=== PATIENT | female | born 1960 | race Caucasian/White ===

== ENCOUNTER 2017-08-20 13:39 | Emergency (ER) | payer BC ==
--- NOTE | 2017-08-20 14:43 | RAD ---
Clinical Indication: Headaches and dizziness for 3 weeks. Technique: Study is dated August 20, 2017. CT images of the head were obtained from the skull base to the vertex without IV contrast. There are no comparison studies available. One or more of the following individualized dose reduction techniques were utilized for this examination: 1. Automated exposure control 2. Adjustment of the mA and/or kV according to patient size 3. Use of iterative reconstruction technique Findings: The ventricles are normal in size and configuration. There is no hemorrhage, extraaxial collection, mass, or midline shift. There is no large vascular distribution acute infarct. The posterior fossa and brainstem are unremarkable. Orbits are normal. The included paranasal sinuses and mastoid air cells are clear. There is no skull fracture appreciated on bone level images. Impression: No acute intracranial findings.
--- NOTE | 2017-08-20 15:08 | PHYS DOC ---
Past History Past Medical History: Arthritis Alcohol Use: Occasionally Drug Use: None Adult General Chief Complaint Chief Complaint: DIZZY/LIGHT HEADED [facility] HPI 57-year-old male patient complaining of intermittent episodes of dizziness and near syncope for the last 2 years that usually happens while she is at her work. Patient states she was seen by her primary care physician and treated for anxiety decided to not take Lexapro patient states she had one episode of near- syncope and dizziness today while she was sitting at lunch table last about 20 minutes. She denies chest pain, shortness of breath, focal neuro deficit, headache, blurred vision, nausea and vomiting. Patient states her episode today was like her previous episodes but it was the first time that it happened while she was at home. Patient states she is back to normal condition now. Review of Systems Review of Systems Constitutional: Denies fever or chills [] Eyes: Denies change in visual acuity, redness, or eye pain [] HENT: Denies nasal congestion or sore throat [] Respiratory: Denies cough or shortness of breath [] Cardiovascular: No additional information not addressed in HPI [] GI: Denies abdominal pain, nausea, vomiting, bloody stools or diarrhea [] : Denies dysuria or hematuria [] Musculoskeletal: Denies back pain or joint pain [] Integument: Denies rash or skin lesions [] Neurologic: Denies headache, focal weakness or sensory changes , reports dizziness[] Endocrine: Denies polyuria or polydipsia [] All other systems were reviewed and found to be within normal limits, except as documented in this note. Physical Exam Physical Exam Constitutional: Well developed, well nourished, no acute distress, non-toxic appearance, anxious. [] HENT: Normocephalic, atraumatic, bilateral external ears normal, oropharynx moist, no oral exudates, nose normal. [] Eyes: PERRLA, EOMI, conjunctiva normal, no discharge. [] Neck: Normal range of motion, no tenderness, supple, no stridor. [] Cardiovascular:Heart rate regular rhythm, no murmur [] Lungs & Thorax: Bilateral breath sounds clear to auscultation [] Abdomen: Bowel sounds normal, soft, no tenderness, no masses, no pulsatile masses. [] Skin: Warm, dry, no erythema, no rash. [] Back: No tenderness, no CVA tenderness. [] Extremities: No tenderness, no cyanosis, no clubbing, ROM intact, no edema. [] Neurologic: Alert and oriented X 3, normal motor function, normal sensory function, no focal deficits noted. [] Psychologic: Affect normal, judgement normal, mood normal. [] Current Patient Data Vital Signs Vital Signs Date Time Temp Pulse Resp B/P (MAP) Pulse Ox O2 Delivery O2 Flow Rate FiO2 08/20/17 13:54 98.3 65 16 100 Room Air EKG EKG [] Radiology/Procedures Radiology/Procedures [] [address] [place] [id number] IMAGING REPORT Signed PATIENT: VERONICA WAHL ACCOUNT: [id number] : 1960 LOCATION: ER AGE: 57 SEX: M EXAM STATUS: REG ER ORD. PHYSICIAN: MAKENZIE PATEL MD REASON: dizziness PROCEDURE: CT HEAD WO CONTRAST Clinical Indication: Headaches and dizziness for 3 weeks. Technique: Study is dated August 20, 2017. CT images of the head were obtained from the skull base to the vertex without IV contrast. There are no comparison studies available. One or more of the following individualized dose reduction techniques were utilized for this examination: 1. Automated exposure control 2. Adjustment of the mA and/or kV according to patient size 3. Use of iterative reconstruction technique Findings: The ventricles are normal in size and configuration. There is no hemorrhage, extraaxial collection, mass, or midline shift. There is no large vascular distribution acute infarct. The posterior fossa and brainstem are unremarkable. Orbits are normal. The included paranasal sinuses and mastoid air cells are clear. There is no skull fracture appreciated on bone level images. Impression: No acute intracranial findings. DICTATED AND SIGNED BY: MIKEY ALCARAZ MD DATE: 08/20/17 1703 CC: HERMAN CRANDALL MD; MAKENZIE PATEL MD ~ Course & Med Decision Making Course & Med Decision Making Evaluation of patient in ER showed 67-year-old male patient with complaining of intermittent episodes of dizziness for 2 years that getting more often. Patient had unremarkable physical exam except for anxiety. CT head was unremarkable. Patient states she had normal blood pressure and heart rate during episodes of dizziness. 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 Dragon Disclaimer Dragon Disclaimer This electronic medical record was generated, in whole or in part, using a voice recognition dictation system. Departure Departure: Impression: Primary Impression: Dizziness of unknown cause Disposition: HOME, SELF-CARE (At 1508) Condition: IMPROVED Referrals: HERMAN CRANDALL MD (PCP) Patient Instructions: Dizziness Additional Instructions: Follow-up with your primary care physician for possible referral to neurology and pantograph ii engraver Return to emergency room if not getting better MAKENZIE PATEL MD Aug 20, 2017 15:08
[2017-08-20 15:15] VITALS: BP 137/80
== END 2017-08-20 15:17 | disposition home or self-care (01) ==
LOC: EDSEX 13:39 → ER 13:39
DX: R42 Dizziness and giddiness (principal); R55 Syncope and collapse; M19.90 Unspecified osteoarthritis, unspecified site
CPT/HCPCS: 70450; 99284-25

== ENCOUNTER → 2019-08-29 | Outpatient (CLI) | payer BC ==
--- NOTE | 2019-08-29 16:51 | RAD ---
EXAM: Right shoulder, 3 views. HISTORY: Pain. COMPARISON: None. FINDINGS: 3 views of the right shoulder obtained. There is no fracture, dislocation or subluxation. There is a calcified granuloma within the right lung. There is a 1.2 cm sclerotic lesion within the right humeral diaphysis. IMPRESSION: 1. No acute osseous finding. 2. Small sclerotic lesion within the right humeral diaphysis. In the absence of known malignancy, this is likely a bone island. If there is a history of known primary malignancy, the possibly of a sclerotic metastasis is not excluded. Electronically signed by: Wilda Go MD (08/29/2019 4:48 PM) [facility] [place]
== END | disposition home or self-care (01) ==
LOC: DXRAD 15:35
PROVIDERS: ATTEND Orthopaedic Surgery
DX: M75.91 Shoulder lesion, unspecified, right shoulder (principal); J84.10 Pulmonary fibrosis, unspecified
CPT/HCPCS: 73030

== ENCOUNTER → 2020-06-01 | Outpatient (CLI) | payer BC ==
--- NOTE | 2020-06-05 10:41 | RAD ---
DATE: 06/01/2020 3:00 PM EXAM: MAMMO [facility]BORAH SCREENING BILATERAL HISTORY: Screening COMPARISON: 04/11/2018 Bilateral CC and MLO views of the breasts were performed. Bilateral breast tomosynthesis was performed in CC and MLO projections. This study was interpreted with the benefit of Computerized Aided Detection (CAD). FINDINGS: Breast Density: HETERO The breast parenchyma Is heterogeneously dense, which could reduce sensitivity of mammography. Breast parenchyma level C No suspicious masses, microcalcifications or architectural distortion is present to suggest malignancy in either breast. The visualized axillae are unremarkable. IMPRESSION: No mammographic evidence of malignancy. BI-RADS CATEGORY: 1 NEGATIVE RECOMMENDED FOLLOW-UP: 12M 12 MONTH FOLLOW-UP Annual screening mammography is recommended, unless clinically indicated sooner based on symptoms or change in physical exam. PQRS compliance statement: Patient information was entered into a reminder system with a target due date for the next mammogram. Mammography is a sensitive method for finding small breast cancers, but it does not detect them all and is not a substitute for careful clinical examination. A negative mammogram does not negate a clinically suspicious finding and should not result in delay in biopsying a clinically suspicious abnormality. "Our facility is accredited by the [employer] Mammography Program."
== END ==
LOC: MAMMO 15:02
PROVIDERS: ATTEND Internal Medicine
DX: Z12.31 Encounter for screening mammogram for malignant neoplasm of breast (principal)
CPT/HCPCS: 77063; 77067

== ENCOUNTER → 2021-04-08 | Outpatient (CLI) | payer BC ==
--- NOTE | 2021-04-08 13:52 | RAD ---
EXAM: Left shoulder, 3 views. HISTORY: Pain. COMPARISON: None. FINDINGS: 3 views of the left shoulder obtained. There is no fracture, dislocation or subluxation. IMPRESSION: No acute osseous finding. Electronically signed by: Wilda Go MD (04/08/2021 1:50 PM) [id number]
== END ==
LOC: RAD 12:27
PROVIDERS: ATTEND Orthopaedic Surgery
DX: M25.512 Pain in left shoulder (principal)
CPT/HCPCS: 73030